=== PATIENT | female | born 1980 | race Asian ===

== ENCOUNTER 2023-06-01 19:35 | Emergency (ER) | payer BC, OTHER ==
[~2023-06-01] VITALS: Ht 154.9 cm; Wt 63.5 kg
[2023-06-01 19:40] VITALS: BP_SYST 158; PULSE 96; RESP 19; TEMP 97.9; O2SAT 99
[2023-06-01] MEDS ORDERED: LORazepam 1 MG TABLET PO ONE (20:45)
[2023-06-01] MEDS ORDERED: PRED20TA PO (20:56)
[2023-06-01] MEDS ORDERED: VIS25 PO (20:56)
[2023-06-01] MEDS ORDERED: predniSONE 20 MG TABLET PO ONE (21:15)
[2023-06-01 21:48] VITALS: BP_SYST 126; PULSE 88; RESP 19; TEMP 97.9; O2SAT 98
== END 2023-06-01 21:48 | disposition home or self-care (01) ==
LOC: SED 19:35
DX: T78.1XXA Other adverse food reactions, not elsewhere classified, initial encounter (principal); J45.909 Unspecified asthma, uncomplicated; Z88.8 Allergy status to other drugs, medicaments and biological substances; Z79.899 Other long term (current) drug therapy; X58.XXXA Exposure to other specified factors, initial encounter
CPT/HCPCS: 99283; J7512